=== PATIENT | female | born 2000 | race African-American/Black ===

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

== ENCOUNTER 2021-04-25 12:54 | Emergency (ER) | payer MEDICAID ==
[~2021-04-25] VITALS: Ht 167.6 cm; Wt 72.6 kg
[2021-04-25 16:45] VITALS: BP 118/84
== END 2021-04-25 16:51 | disposition home or self-care (01) ==
LOC: ER 12:54
DX: J20.9 Acute bronchitis, unspecified (principal)
CPT/HCPCS: 71045

== ENCOUNTER 2021-10-28 08:33 | Emergency (ER) | payer MEDICAID ==
[~2021-10-28] VITALS: Ht 167.6 cm; Wt 63.5 kg
[2021-10-28 09:26] LABS: Basophils # (auto) 0.2 10 ^3/uL (0-0.2); Basophils % (auto) 1.9 % (0.0-2.0); Eosinophils # (auto) 0 10 ^3/uL (0-0.8); Eosinophils % (auto) 0.5 % (0.0-7.0); Hematocrit 39.1 % (36.0-46.0); Hemoglobin 13.4 g/dL (12.2-16.2); Lymphocytes # (auto) 0.9 10 ^3/uL (0.4-5.4); Lymphocytes % (auto) 8.3 % (10.0-50.0); Mean Corpuscular Hemoglobin 29.9 pg (28.0-32.0); Mean Corpuscular Hgb Conc. 34.3 g/dL (32.0-36.0); Mean Corpuscular Volume 87.1 fL (80.0-100.0); Monocytes # (auto) 0.5 10 ^3/uL (0-1.3); Monocytes % (auto) 4.9 % (0.0-12.0); Neutrophils # (auto) 8.7 10 ^3/uL (1.6-8.6); Neutrophils % (auto) 84.4 % (37.0-80.0); Red Blood Cells 4.48 10^6/uL (4.0-5.20); Red Cell Distribution Width 13.9 % (11.8-14.3); White Blood Cell 10.3 10^3/uL (4.4-10.8)
[2021-10-28 09:42] LABS: BUN/Creatinine Ratio 16.9; Calcium 9.4 mg/dL (8.5-10.1); Potassium 4.2 mmol/L (3.5-5.1)
[2021-10-28 09:45] LABS: Bilirubin, Total 0.6 mg/dL (0.2-1.0); Total Protein 7.7 g/dL (6.4-8.2)
[2021-10-28] MEDS ORDERED: ONDANSETRON HCL 4 MG/2 ML VIAL IV ONE (09:45)
[2021-10-28] MEDS ORDERED: MORPHINE SULFATE INJECTION 2 MG/ML SYRG IV ONE (09:45)
[2021-10-28 10:18] LABS: Urine Bacteria NONE SEEN /hpf (None Seen); Urine Blood Negative /uL (Negative); Urine Mucus FEW (None Seen); Urine Specific Gravity 1.022 (1.001-1.035); Urine WBC <1 /hpf (0 - 5)
[2021-10-28 11:03] VITALS: BP 101/58
== END 2021-10-28 11:15 | disposition home or self-care (01) ==
LOC: ER 08:33
DX: R10.84 Generalized abdominal pain (principal); R11.2 Nausea with vomiting, unspecified; F12.10 Cannabis abuse, uncomplicated
CPT/HCPCS: 36415; 74176; 80053; 81001; 85025; 93005; 96374; 96375; 99285; J2270; J2405

== ENCOUNTER 2021-10-29 22:57 | Emergency (ER) | payer MEDICAID ==
[~2021-10-29] VITALS: Ht 167.6 cm; Wt 63.5 kg
[2021-10-30] MEDS ORDERED: ACETAMINOPHEN 325 MG TAB PO ONE (04:00)
[2021-10-30] MEDS ORDERED: DONNATAL 5ml ORAL Elix (BELLADONNA ALK-PHENOBARB) PO ONE (05:00)
[2021-10-30] MEDS ORDERED: ALUM & MAG HYDROX-SIMETH LIQ(MAALOX) 30 ML PO ONE (05:30)
[2021-10-30] MEDS ORDERED: LIDOCAINE VISCOUS 2% 15ML UD MT ONE (05:30)
[2021-10-30 05:45] VITALS: BP 105/75
== END 2021-10-30 06:14 | disposition home or self-care (01) ==
LOC: ER 22:57
DX: K29.70 Gastritis, unspecified, without bleeding (principal); Z79.2 Long term (current) use of antibiotics
CPT/HCPCS: 81025

== ENCOUNTER 2022-04-21 18:35 | Emergency (ER) | payer MEDICAID ==
[~2022-04-21] VITALS: Ht 167.6 cm; Wt 62.7 kg
[2022-04-21 23:27] VITALS: BP 123/92
[2022-04-22] MEDS ORDERED: ONDANSETRON ODT 4 MG TAB PO ONE (05:00)
[2022-04-22] MEDS ORDERED: HYDROcodone-ACET 5/325MG TAB PO ONE (05:00)
== END 2022-04-22 05:51 | disposition home or self-care (01) ==
LOC: ER 18:35
DX: S63.114A Dislocation of metacarpophalangeal joint of right thumb, initial encounter (principal); F12.10 Cannabis abuse, uncomplicated; W22.01XA Walked into wall, initial encounter; Y93.89 Activity, other specified; Y92.89 Other specified places as the place of occurrence of the external cause; Y99.8 Other external cause status
CPT/HCPCS: 73120; 73130

== ENCOUNTER 2022-10-22 10:16 | Emergency (ER) | payer MEDICAID ==
[~2022-10-22] VITALS: Ht 167.6 cm; Wt 59.0 kg
[2022-10-22 10:28] VITALS: BP 141/74
[2022-10-22 11:18] LABS: Urine Bacteria NONE SEEN /hpf (None Seen); Urine Blood Negative /uL (Negative); Urine Mucus FEW (None Seen); Urine Specific Gravity 1.025 (1.001-1.035); Urine WBC <1 /hpf (0 - 5)
== END 2022-10-22 13:15 | disposition left against medical advice (07) ==
LOC: ER 10:16
DX: R10.9 Unspecified abdominal pain (principal); K59.00 Constipation, unspecified; Z53.21 Procedure and treatment not carried out due to patient leaving prior to being seen by health care provider
CPT/HCPCS: 81001

== ENCOUNTER 2023-10-30 16:07 | Emergency (ER) | payer MEDICAID ==
[~2023-10-30] VITALS: Ht 167.6 cm; Wt 67.7 kg
[2023-10-30 16:58] LABS: Basophils # (auto) 0 10 ^3/uL (0-0.2); Basophils % (auto) 0.3 % (0.0-2.0); Eosinophils # (auto) 0.1 10 ^3/uL (0-0.8); Eosinophils % (auto) 0.4 % (0.0-7.0); Hematocrit 37.4 % (36.0-46.0); Hemoglobin 12.5 g/dL (12.2-16.2); Lymphocytes % (auto) 15.9 % (10.0-50.0); Mean Corpuscular Hemoglobin 29.5 pg (28.0-32.0); Mean Corpuscular Hgb Conc. 33.5 g/dL (32.0-36.0); Mean Corpuscular Volume 88.2 fL (80.0-100.0); Monocytes # (auto) 1.2 10 ^3/uL (0-1.3); Monocytes % (auto) 9.1 % (0.0-12.0); Neutrophils # (auto) 9.5 10 ^3/uL (1.6-8.6); Neutrophils % (auto) 74.3 % (37.0-80.0); Red Blood Cells 4.24 10^6/uL (4.0-5.20); Red Cell Distribution Width 13.5 % (11.8-14.3); White Blood Cell 12.8 10^3/uL (4.4-10.8)
[2023-10-30 17:03] LABS: Chloride 104 mmol/L (98-107); Potassium 3.4 mmol/L (3.5-5.1); Sodium 136 mmol/L (136-145)
[2023-10-30 17:04] LABS: Anion Gap 6 (5-15); Calcium 9.8 mg/dL (8.7-10.4); Carbon Dioxide 26 mmol/L (20-30)
[2023-10-30 17:09] LABS: BUN/Creatinine Ratio 10.5 (10.0-20.0); Blood Urea Nitrogen 6 mg/dL (9-23); Glucose 100 mg/dL (74-106)
[2023-10-30 20:16] VITALS: BP 117/80; PULSE 79; RESP 19; TEMP 98.2; O2SAT 100
== END 2023-10-30 20:17 | disposition home or self-care (01) ==
LOC: ER 16:07
DX: O20.9 Hemorrhage in early pregnancy, unspecified (principal); R10.2 Pelvic and perineal pain; F15.90 Other stimulant use, unspecified, uncomplicated; Z3A.01 Less than 8 weeks gestation of pregnancy; Z79.899 Other long term (current) drug therapy
CPT/HCPCS: 36415; 76801; 80048; 84702; 85025

== ENCOUNTER 2023-12-21 08:09 | Emergency (ER) | payer MEDICAID ==
[~2023-12-21] VITALS: Ht 167.6 cm; Wt 69.1 kg
[2023-12-21 08:38] LABS: Urine WBC None Seen /hpf (0 - 5)
[2023-12-21 09:20] LABS: Urine Bacteria FEW /hpf (None Seen); Urine Blood Negative /uL (Negative); Urine Clarity Clear (Clear); Urine Color Light-Yellow (Yellow); Urine Protein, UAD Negative (Negative); Urine Specific Gravity 1.004 (1.001-1.035); Urine Urobilinogen Normal (Negative)
[2023-12-21 16:00] VITALS: BP 119/58; PULSE 62; RESP 18; TEMP 98.3; O2SAT 96
== END 2023-12-21 16:01 | disposition home or self-care (01) ==
LOC: ER 08:09
DX: O26.892 Other specified pregnancy related conditions, second trimester (principal); R10.2 Pelvic and perineal pain; Z3A.15 15 weeks gestation of pregnancy
CPT/HCPCS: 36415; 76805; 81001; 84702

== ENCOUNTER 2024-03-25 18:03 | Observation (INO) | payer MEDICAID ==
[~2024-03-25] VITALS: Ht 167.6 cm; Wt 85.3 kg
[2024-03-25] MEDS ORDERED: LACTATED RINGER'S 1,000 ML IV SCH (19:00)
[2024-03-25] MEDS ORDERED: LACTATED RINGER'S 1,000 ML IV ONE (19:00)
[2024-03-25] MEDS: TERBUTALINE SULFATE 1 MG/ML 1ML VIAL SC SCH (19:14)
== END 2024-03-25 21:57 | disposition home or self-care (01) ==
LOC: LDRP 18:03
PROVIDERS: ADMIT Obstetrics & Gynecology; ATTEND Obstetrics & Gynecology
DX: O47.03 False labor before 37 completed weeks of gestation, third trimester (principal); Z3A.29 29 weeks gestation of pregnancy
CPT/HCPCS: 59025; 76815; 81002; 82948; 82962; 94760; 96360; 96361; 96372; G0378; J3105